=== PATIENT | male | born 1995 | race Caucasian/White ===

== ENCOUNTER 2020-01-07 02:05 | Emergency (ER) | payer OTHER ==
[~2020-01-07] VITALS: Ht 180.3 cm; Wt 65.8 kg
[~2020-01-07 02:05] MED LIST: AUGMENTIN 875875 MG PO; IBUPROFEN 400400 M2 PO; NAPROSYN500 MG PO
[2020-01-07] MEDS ORDERED: KEFLEX500 M1 PO (03:09)
[2020-01-07 03:27] VITALS: BP 106/86
== END 2020-01-07 03:27 | disposition home or self-care (01) ==
LOC: M.ERS 02:05
DX: S71.111A Laceration without foreign body, right thigh, initial encounter (principal); W26.0XXA Contact with knife, initial encounter; Y92.000 Kitchen of unspecified non-institutional (private) residence as the place of occurrence of the external cause; Y93.89 Activity, other specified; Y99.8 Other external cause status